=== PATIENT | male | born 1990 | race Caucasian/White ===

== ENCOUNTER 2020-04-10 19:21 | Emergency (ER) | payer SELFPAY ==
[2020-04-10 19:33] VITALS: BP 124/76; PULSE 89; RESP 16; TEMP 36.7; O2SAT 100
--- NOTE | 2020-04-10 20:14 | ED.GENADULT ---
HPI - General Adult General Chief complaint: Skin/Abscess/Foreign Body Stated complaint: Bite/Rash Time Seen by Provider: 04/10/20 20:14 Source: patient and RN notes reviewed Mode of arrival: ambulatory Limitations: no limitations History of Present Illness HPI narrative: 29-year-old male presents with complaints of red, raised, itching, burning, rash to upper extremities for the past 3 days. Outside in the yard playing baseball. No treatment. Denies new detergent, personal hygiene products, or laundry detergent. No new foods or medications. No swelling, bleeding, or drainage. Denies fever or chills, headaches, weakness, fatigue, malagia, facial swelling, or tongue swelling. Denies chest pain or dyspnea. The patient reports he have not been diagnosed with COVID-19. The patient reports he are not waiting for the results of a COVID-19 lab test. The patient reports he do not have fever, chills, weakness, or fatigue. The patient reports he do not have a new or worsening cough. The patient reports they do not have any rhinorrhea, congestion, sore throat, nausea, vomiting, abdominal pain, and diarrhea. Tolerating po intake well. Denies recent traveling. Denies concerns for COVID-19 or exposures been home with limited outdoor exposure except for essential household needs and return home. At this time, patient is not suspected of having COVID-19. Complains of insect bite to RT lower leg for the past 3 hours. No treatment. Gino believes an insect bit him on the right lower leg. Mild redness. Denies pain, burning, bleeding, and drainage. No fever or chills, or headaches. Denies numbness, tingling, or immobility. Some parts of this dictation were generated by voice recognition software and may contain typographical and/or grammatical inaccuracies. Related Data Allergies Allergy/AdvReac Type Severity Reaction Status Date / Time No Known Allergies Allergy Unknown Verified 04/10/20 19:39 Review of Systems Review of Systems: Narrative: CONSTITUTIONAL: Denies fever, chills, sweats. EYES: Denies visual changes, redness, discharge. ENT: Denies rhinorrhea, congestion, sore throat, otalgia. CARDIOVASCULAR: Denies chest pain, palpitations, edema. RESPIRATORY: Denies dyspnea, wheezing, cough. GASTROINTESTINAL: Denies abdominal pain, nausea, vomiting, diarrhea. GENITOURINARY: Denies dysuria, hematuria, abnormal discharge. SKIN: Complains of red, burning, and itching rash to upper extremites and insect bit to RT lower leg. Denies drainage. MUSCULOSKELETAL: Denies acute back pain, joint pain, or myalgia. NEUROLOGIC: Denies numbness or focal weakness. PSYCHIATRIC: Denies anxiety or depression. All other systems reviewed are negative, except as documented in HPI. [facility] Past Medical History Medical History (Updated 04/14/20 @ 21:24 by JESSICA Ortiz) History of TIA (transient ischemic attack) due to stress X3 Surgical History Surgical History (Updated 04/14/20 @ 21:22 by JESSICA Ortiz) No significant past surgical history Family History Family History (Updated 04/14/20 @ 21:26 by JESSIAC Ortiz) Father Unknown family medical history Mother Seizures Social History Social History (Updated 04/14/20 @ 21:30 by JESSICA Ortiz) Smoking packs per day: 0.45 Smoking cigarettes per day: 9.0 Years smoked: 2.5 Smoking pack-years: 1.13 Smoking status: Current every day smoker Tobacco type: cigarettes Second hand tobacco smoke exposure: No Alcohol intake: former Substance use: never Occupation/Education: unemployed Gender identity (if verbalized by the patient): Male Sexual Orientation (if Verbalized by the Patient): Straight or Heterosexual Comments At time of signature, agree with nurse past medical, surgical, social, and family history. There is no relevant family history pertinent to the presenting complaint. Exam Narrative: Exam Narrative: GENERAL:
== END 2020-04-10 20:28 | disposition home or self-care (01) ==
PROVIDERS: Emergency Provider Nurse Practitioner Family
DX: L23.7 Allergic contact dermatitis due to plants, except food (principal)
CPT/HCPCS: 99213; G0463

== ENCOUNTER 2020-05-20 18:44 | Emergency (ER) | payer SELFPAY ==
[2020-05-20 18:50] VITALS: BP 127/80; PULSE 91; RESP 18; TEMP 36.9; O2SAT 98
--- NOTE | 2020-05-20 18:58 | ED.SKABFB ---
HPI - Skin/Abscess/Foreign Bdy General Chief complaint: Skin/Abscess/Foreign Body Stated complaint: poison Yuliana Time Seen by Provider: 05/20/20 18:58 Source: patient and RN notes reviewed History of Present Illness HPI narrative: Patient is a 29-year-old male who presents the urgent care with complaints of scattered itchy poison yuliana. Patient states he is highly susceptible to poison yuliana. Patient states is been occurring for approximately 1 week and he has been using hydrocortisone cream to the affected areas. Patient states that seems to be worsening. 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 No other acute complaints. No acute distress noted. Patient aware of the plan of care. Some parts of this dictation were generated by voice recognition software and may contain typographical and/or grammatical inaccuracies. Related Data Allergies Allergy/AdvReac Type Severity Reaction Status Date / Time No Known Allergies Allergy Unknown Verified 05/20/20 18:50 Review of Systems Review of Systems: Narrative: CONSTITUTIONAL: Denies fever, chills, or sweats. EYES: Denies visual changes, redness, or discharge. ENT: Denies rhinorrhea, congestion, sore throat, or otalgia. CARDIOVASCULAR: Denies chest pain, palpitations, or edema. RESPIRATORY: Denies cough or dyspnea. GASTROINTESTINAL: Denies abdominal pain, nausea, vomiting, or diarrhea. GENITOURINARY: Denies dysuria or hematuria. SKIN: Reports of itchy spreading poison yuliana to the face, arms and legs MUSCULOSKELETAL: Denies back pain, joint pain, or myalgia. NEUROLOGIC: Denies headache, numbness, or weakness. All other systems reviewed are negative, except as documented in HPI. [facility] Past Medical History Medical History (Updated 05/20/20 @ 19:07 by JESSICA Rudolph) History of TIA (transient ischemic attack) due to stress X3 Surgical History Surgical History (Updated 04/14/20 @ 21:22 by JESSICA Ortiz) No significant past surgical history Family History Family History (Updated 04/14/20 @ 21:26 by JESSICA Ortiz) Father Unknown family medical history Mother Seizures Social History Social History (Updated 04/14/20 @ 21:30 by JESSICA Ortiz) Smoking packs per day: 0.45 Smoking cigarettes per day: 9.0 Years smoked: 2.5 Smoking pack-years: 1.13 Smoking status: Current every day smoker Tobacco type: cigarettes Second hand tobacco smoke exposure: No Alcohol intake: former Substance use: never Gender identity (if verbalized by the patient): Male Comments At the time of my signature, I reviewed and agree with the nursing past medical, surgical, social, and family history. There is no relevant family history pertinent to the patient complaint. Exam Narrative: Exam Narrative: GENERAL: This is a well-nourished, well-developed patient, in no apparent distress. HEAD: normocephalic, atraumatic. EYES: PERRL. Sclera clear/white. Vision is grossly intact. EARS: External ears normal NOSE: External nose normal with no obvious nasal discharge, nares without redness, no rhinorrhea. THROAT: Mucous membranes moist NECK: Neck supple SKIN: Pustular mildly erythemic ruse dermatitis noted to bilateral upper and lower legs, bilateral arms and around the forehead/hairline NEURO: awake, alert, and oriented to person, place and time. There were no obvious focal neurologic abnormalities. EXTREMITIES: No clubbing, cyanosis, or edema. Course Vital Signs Vital signs: Vital Signs Temperature 98.4 F 05/20/20 18:50 Pulse Rate 91 05/20/20 18:50 Respiratory Rate 18 05/20/20 18:50 Blood Pressure 127/80 05/20/20 18:50 Pulse Oximetry 98 05/20/20 18:50 Temperature 98.4 F 05/20/20 18:50 Pulse Rate 91 05/20/20 18:50 Respiratory Rate 18 05/20/20 18:50 Blood Pressure 127/80 05/20/20 18:50 Pulse Oximetry 98 05/20/20 18:50 Reviewed MDM - Skin/Abscess/Foreign Bdy MDM Narrative M
== END 2020-05-20 19:10 | disposition home or self-care (01) ==
PROVIDERS: Emergency Provider Nurse Practitioner Family
DX: L23.7 Allergic contact dermatitis due to plants, except food (principal); F17.210 Nicotine dependence, cigarettes, uncomplicated; Z86.73 Personal history of transient ischemic attack (TIA), and cerebral infarction without residual deficits
CPT/HCPCS: 99213; G0463

== ENCOUNTER 2021-06-22 19:10 | Emergency (ER) | payer OTHER, SELFPAY ==
--- NOTE | ~2021-06-22 | XR_ITS ---
EXAMINATION: XR knee LT min 4V DATE: 06/22/2021 19:47 INDICATION: Left knee pain TECHNIQUE: Five views of the left knee were obtained. COMPARISON: None. FINDINGS: Alignment is normal. No fracture or osteochondral lesion. Joint spaces are normal with no e rosions. No joint effusion/synovitis. There is infrapatellar and medial soft tissue swelling of the knee. IMPRESSION: 1. Soft tissue swelling without acute osseous abnormality. Reviewed, dictated and finalized at location A.
[2021-06-22 19:16] VITALS: BP 126/70; PULSE 88; RESP 14; TEMP 36.7; O2SAT 100
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
== END 2021-06-22 20:15 | disposition home or self-care (01) ==
PROVIDERS: Emergency Provider Nurse Practitioner
DX: S87.02XA Crushing injury of left knee, initial encounter (principal); W20.8XXA Other cause of strike by thrown, projected or falling object, initial encounter; Z86.73 Personal history of transient ischemic attack (TIA), and cerebral infarction without residual deficits; F17.210 Nicotine dependence, cigarettes, uncomplicated
CPT/HCPCS: 73564; 99213; G0463

== ENCOUNTER 2021-08-25 16:38 | Emergency (ER) | payer SELFPAY ==
[2021-08-25 16:42] VITALS: BP 146/75; PULSE 90; RESP 20; TEMP 36.7; O2SAT 100
--- NOTE | 2021-08-25 16:57 | ED.DENTAL ---
HPI - Dental/Oral General Chief complaint: Dental/Oral Stated complaint: tooth pain Time Seen by Provider: 08/25/21 16:57 Source: patient, RN notes reviewed and old records reviewed Mode of arrival: ambulatory Limitations: no limitations History of Present Illness HPI Narrative: 30-year-old male presents to the [facility] with complaints of dental pain for the last month. Worse over the last week. Patient states that on the right side he had all the teeth removed due to infection and decay. All molars on the left upper and lower are decayed to the gumline. Patient states that he gets little bubbles full of pus pop some with a needle and states they feel better. Swelling noted to surrounding tissue. States he has been taking ibuprofen, requesting an antibiotic. States he is also been using salt gargles which helps a little bit. MD Complaint: tooth pain Related Data Allergies Allergy/AdvReac Type Severity Reaction Status Date / Time No Known Allergies Allergy Unknown Verified 08/25/21 16:53 Review of Systems Review of Systems: All systems reviewed & are unremarkable except as noted in HPI and below Constitutional: Constitutional: Reports no additional constitutional complaints, Denies chills and Denies fever(s) Eyes: Eyes: Reports no additional eye complaints ENT: Reports as per HPI Comments: Left-sided dental pain Cardiovascular: Cardiovascular: Reports no additional cardiovascular complaints and Denies chest pain Respiratory: Respiratory: Reports no additional respiratory complaints, Denies cough and Denies dyspnea Gastrointestinal: Gastrointestinal: Reports no additional gastrointestinal complaints, Denies abdominal pain, Denies nausea and Denies vomiting Musculoskeletal: Musculoskeletal: Reports no additional musculoskeletal complaints Integumentary/Breasts: Skin/Breast: Reports system reviewed and no additional complaints, except as docu Neurologic: Reports system reviewed and no additional complaints, except as documented Psychiatric: Psychiatric: Reports no additional psychiatric complaints Allergic/Immunologic: Allergic/Immunologic: Reports no additional allergic/immunologic complaints [facility] Past Medical History Medical History (Updated 08/25/21 @ 16:58 by Kelli Jurado) History of TIA (transient ischemic attack) due to stress X3 Surgical History Surgical History No significant past surgical history Family History Family History Father Unknown family medical history Mother Seizures Social History Social History Smoking packs per day: 0.45 Smoking cigarettes per day: 9.0 Years smoked: 2.5 Smoking pack-years: 1.13 Smoking status: Current every day smoker Tobacco type: cigarettes Second hand tobacco smoke exposure: No Alcohol intake: former Substance use: never Gender identity (if verbalized by the patient): Male Sexual Orientation (if Verbalized by the Patient): Straight or Heterosexual Comments At the time of my signature, I reviewed and agree with the nursing past medical, surgical, social, and family history. There is no relevant family history pertinent to the patient complaint. Exam Const: General: healthy appearing, no acute distress and alert Nutritional Appearance: well nourished Orientation/consciousness: patient oriented x3 Limitations: no limitations HENMT: Head: normal to inspection Ears: hearing grossly normal bilaterally, external ears normal, TM's normal bilaterally and EAC's normal General nose exam: Normal external nose present Face and sinus: normal facial exam Mouth: Yes moist mucous membranes Teeth and gingiva: abnormal tooth and associated gingiva, caries, gingiva abnormal edematous and diffusely erythematous and poor dentition Throat: posterior oropharynx normal Eyes: Conjunctivae: conjunctivae normal
== END 2021-08-25 17:06 | disposition home or self-care (01) ==
PROVIDERS: Emergency Provider Nurse Practitioner
DX: K02.9 Dental caries, unspecified (principal); K04.7 Periapical abscess without sinus; F17.210 Nicotine dependence, cigarettes, uncomplicated; Z86.73 Personal history of transient ischemic attack (TIA), and cerebral infarction without residual deficits
CPT/HCPCS: 99213; G0463

== ENCOUNTER 2021-11-14 18:29 | Emergency (ER) | payer BC, SELFPAY ==
--- NOTE | 2021-11-14 18:32 | WPDEDEXPGENP ---
HPI - General Ped General Chief complaint: Dental/Oral Stated complaint: Toothache Time Seen by Provider: 11/14/21 18:32 Source: patient Mode of arrival: ambulatory Limitations: no limitations Nursing Documentation: reviewed/agree History of Present Illness HPI narrative: 30-year-old male patient presents to the [facility] with complaint of left upper tooth pain. Patient states he saw his dentist a couple days ago and was prescribed amoxicillin but only for 3 days. Patient states that he is found an oral surgeon that will take him to remove the teeth but he was waiting on a referral from his dentist. Patient states his dentist would not refer him until the infection has gone. Patient states he has been taking ibuprofen for the pain. Related Data Allergies Allergy/AdvReac Type Severity Reaction Status Date / Time No Known Allergies Allergy Unknown Verified 11/14/21 18:31 Pediatric Review of Systems Review of Systems: CONSTITUTIONAL: Denies fever, chills, or sweats. EYES: Denies visual changes, redness, or discharge. ENT: Denies rhinorrhea, congestion, sore throat, or otalgia. Positive left upper tooth pain CARDIOVASCULAR: Denies chest pain, palpitations, or edema. RESPIRATORY: Denies cough or dyspnea. GASTROINTESTINAL: Denies abdominal pain, nausea, vomiting, or diarrhea. GENITOURINARY: Denies dysuria or hematuria. SKIN: Denies rash or itching. MUSCULOSKELETAL: Denies back pain, joint pain, or myalgia. NEUROLOGIC: Denies headache, numbness, or weakness. PSYCHIATRIC: Denies anxiety or depression. [facility] Past Medical History Medical History History of TIA (transient ischemic attack) due to stress X3 Surgical History Surgical History No significant past surgical history Family History Family History Father Unknown family medical history Mother Seizures Social History Social History Smoking packs per day: 0.45 Smoking cigarettes per day: 9.0 Years smoked: 2.5 Smoking pack-years: 1.13 Smoking status: Current every day smoker Tobacco type: cigarettes Second hand tobacco smoke exposure: No Alcohol intake: former Substance use: never Gender identity (if verbalized by the patient): Male Sexual Orientation (if Verbalized by the Patient): Straight or Heterosexual Comments At the time of my signature I agree with nursing past medical history, surgical, social, and family history. There is no relevant family history pertinent to the presenting complaint. Pediatric Exam Narrative: Physical exam: GENERAL: Well-appearing, well-nourished, and in no acute distress. HEAD: Normocephalic, atraumatic. EYES: PERRLA and EOMI. ENT: Nares clear, no rhinorrhea or epistaxis. Mucous membranes moist. Patient has multiple dental caries rotten teeth throughout the entire oral cavity. Patient does have surrounding erythema and swelling noted to the upper back molars. There is no open wound or discharge noted at this time. NECK: Supple. No lymphadenopathy CHEST: Clear to auscultation. No respiratory distress. HEART: Regular rate and rhythm. No murmur heard. Normal peripheral pulses. ABDOMEN: Soft, nontender, nondistended, normal active bowel sounds. EXTREMITIES: Normal range of motion. No edema. SKIN: Warm, dry, no rash. NEURO: No focal deficits. Alert and oriented x3. Course Course Level of Care: Express Care Visit Vital Signs Vital signs: Vital Signs Temperature 36.9 C 11/14/21 18:34 Pulse Rate 93 11/14/21 18:34 Respiratory Rate 14 11/14/21 18:34 Blood Pressure 133/69 11/14/21 18:34 Pulse Oximetry 100 11/14/21 18:34 Temperature 36.9 C 11/14/21 18:34 Pulse Rate 93 11/14/21 18:34 Respiratory Rate 14 11/14/21 18:34 Blood Pressure 133/69 11/14/21 18:34 Pulse Ox
[2021-11-14 18:34] VITALS: BP 133/69; PULSE 93; RESP 14; TEMP 36.9; O2SAT 100
== END 2021-11-14 18:49 | disposition home or self-care (01) ==
PROVIDERS: Emergency Provider Nurse Practitioner Family
DX: K02.9 Dental caries, unspecified (principal); K04.7 Periapical abscess without sinus; K05.10 Chronic gingivitis, plaque induced; F17.210 Nicotine dependence, cigarettes, uncomplicated; Z86.73 Personal history of transient ischemic attack (TIA), and cerebral infarction without residual deficits
CPT/HCPCS: 99213; G0463

== ENCOUNTER 2022-05-19 19:27 | Emergency (ER) | payer BC, SELFPAY ==
--- NOTE | ~2022-05-19 | XR_ITS ---
EXAM: XR knee LT min 4V DATE: 05/19/2022 19:45 HISTORY: NKI,SWELLING AND PAIN UNDER KNEECAP . COMPARISON: 06/22/2021. FINDINGS: Normal mineralization. No fracture or dislocation. No lytic or blastic lesion. Joint space s are maintained. No erosion or periosteal change. Marked infrapatellar soft tissue swelling. IMPRESSION: No acute osseous finding in the left knee. Marked anterior infrapatellar soft tissue swel ling. Reviewed, dictated and finalized at location K. IMPRESSION: No acute osseous finding in the left knee. Marked anterior infrapat ellar soft tissue swelling.
[2022-05-19 19:30] VITALS: BP 136/72; PULSE 83; RESP 16; TEMP 37.2; O2SAT 100
--- NOTE | 2022-05-19 19:50 | ED.EXTPRO ---
HPI - Extremity Problem General Chief complaint: Extremity Problem,Nontraumatic Stated complaint: Left Knee Injury Time Seen by Provider: 05/19/22 19:46 Source: patient and RN notes reviewed Mode of arrival: ambulatory Limitations: dementia History of Present Illness HPI Narrative: 31-year-old male presents with concern for redness, pain, swelling to the left knee. He reports symptoms started yesterday with a small red bump to the front of the knee. He reports the swelling became larger over the last 24 hours. He reports mild general malaise. He denies fever, bodies, chills, sweats. He denies any rash,, laceration, abrasion. He denies any drainage. He denies any history of knee injury. MD Complaint: extremity pain and extremity swelling Related Data Allergies Allergy/AdvReac Type Severity Reaction Status Date / Time No Known Allergies Allergy Unknown Verified 05/19/22 19:46 Review of Systems Review of Systems: CONSTITUTIONAL: Reports mild malaise. Denies chills, sweats, or fever. EYES: Denies redness, or discharge. ENT: Denies rhinorrhea, congestion, swollen lips, swollen tongue CARDIOVASCULAR: Denies chest pain, palpitations, or edema. RESPIRATORY: Denies cough or dyspnea. GASTROINTESTINAL: Denies abdominal pain, nausea, vomiting SKIN: Reports redness, swelling to the anterior left knee left Denies purulent drainage, vesicles, bullae, numbness, pain beyond proportion MUSCULOSKELETAL: Denies joint pain or myalgia. NEUROLOGIC: Denies headache. All systems reviewed & are unremarkable except as noted in HPI and below PMFSH Past Medical History Medical History History of TIA (transient ischemic attack) due to stress X3 Surgical History Surgical History No significant past surgical history Family History Family History Father Unknown family medical history Mother Seizures Social History Social History Smoking packs per day: 0.45 Smoking cigarettes per day: 9.0 Years smoked: 2.5 Smoking pack-years: 1.13 Smoking status: Current every day smoker Tobacco type: cigarettes Second hand tobacco smoke exposure: No Alcohol intake: former Substance use: never Gender identity (if verbalized by the patient): Male Sexual Orientation (if Verbalized by the Patient): Straight or Heterosexual Comments At time of signature, agree with nursing past medical, surgical, social and family history. There is no relevant family history pertinent to the presenting complaint Exam Narrative: GENERAL: Well-appearing, well-nourished, and in no acute distress. HEAD: Normocephalic, atraumatic. EYES: PERRLA, conjunctivae clear ENT: Mucous membranes moist. NECK: Supple. No lymphadenopathy CHEST: Clear to auscultation. No respiratory distress. HEART: Regular rate and rhythm. SKIN: Warm, dry. Superficial erythema, induration, tenderness, warmth with sharp margins noted above the left patella. No vesicles, bullae, necrosis, ecchymosis, crepitus noted. NEURO: Alert and oriented x3. PSYCH: Normal mood and affect Course Course Emergency Course: The joint itself is not red, warm, painful, swelling, warmth, redness isolated above the patella consistent with cellulitis. Patient was advised that if symptoms do not improve or they worsen he needs to go the ER. Patient reports he has been to the ER but the wait was too long. Patient is aware of diagnosis, understands and agrees to treatment plan. Anticipatory guidance given. Patient agrees to follow-up as directed and is aware of reasons to seek care at the emergency department. Portions of this record may have been created with voice recognition software Level of Care: Express Care Visit Vital Signs Vital signs: Vital Signs Temperature 99 F 05/19/
== END 2022-05-19 20:10 | disposition home or self-care (01) ==
PROVIDERS: Emergency Provider Nurse Practitioner
DX: M70.52 Other bursitis of knee, left knee (principal); F17.210 Nicotine dependence, cigarettes, uncomplicated; Z86.73 Personal history of transient ischemic attack (TIA), and cerebral infarction without residual deficits
CPT/HCPCS: 73564; 99213; G0463

== ENCOUNTER 2025-03-10 10:34 | Emergency (ER) | payer BC, SELFPAY ==
--- OUTSIDE RECORDS SUMMARY | 2025-03-10 10:36 | XMS_ITS | Data Portability ---
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 two Monster drinks/day and a great deal of Mountain Dew. Jorge Odom MD Attn: [address] [place], [address], [facility] 07/21/2022 13:45:41 03/10/2023 text/html Per intake note. Insomnia has improved since reducing highly-caffeinated beverages. Jorge Odom MD Attn: [address] [place], [address], [facility] 03/14/2023 07:59:48 10/11/2023 text/html Per intake note. Jorge patterson MD Attn: [address] [place], [address], [facility] 10/15/2023 08:03:11
[2025-03-10 10:47] VITALS: BP 139/85; PULSE 69; RESP 18; TEMP 36.2; O2SAT 100
--- NOTE | 2025-03-10 10:48 | ED.SKABFB ---
HPI - Skin/Abscess/Foreign Bdy General Chief complaint: Skin/Abscess/Foreign Body Stated complaint: Rash Patient presents to the [facility] with complaints of poison yuliana rash to both arms, abdomen, and face that began 2-3 days ago. Patient has been using an [id number] poison yuliana medication that did help with itching and oozing. Patient reports he usually gets poison yuliana rash several times per year. Denies face swelling, tongue swelling, lip swelling, shortness of breath, or colored drainage from the rash area. Related Data Home Medications ?Medication ?Instructions ?Recorded ?Confirmed ?Last Taken ?Type No Home Medications 03/10/25 03/10/25 Unknown History Allergies Allergy/AdvReac Type Severity Reaction Status Date / Time No Known Allergies Allergy Unknown Verified 03/10/25 10:47 Review of Systems Constitutional: Constitutional: Reports as per HPI, Denies chills, Denies fatigue, Denies fever(s) and Denies weakness Eyes: Eyes: Reports no additional eye complaints ENT: Reports as per HPI Cardiovascular: Cardiovascular: Reports no additional cardiovascular complaints Respiratory: Respiratory: Reports no additional respiratory complaints Gastrointestinal: Gastrointestinal: Reports no additional gastrointestinal complaints Genitourinary: Genitourinary: Reports no additional male genitourinary complaints Musculoskeletal: Musculoskeletal: Reports no additional musculoskeletal complaints Integumentary/Breasts: Skin/Breast: Reports as per HPI, Reports pruritus, Denies erythema, Reports rash and Denies skin ulcer Neurologic: Reports system reviewed and no additional complaints, except as documented Psychiatric: Psychiatric: Reports no additional psychiatric complaints Endocrine: Endocrine: Reports no additional endocrine complaints Hematologic/Lymphatic: Hematologic/Lymphatic: Reports no additional hematologic/lymphatic complaints Allergic/Immunologic: Allergic/Immunologic: Reports as per HPI, Denies lip swelling, Denies throat swelling, Denies tongue swelling and Denies wheezing Comments: Itching and rash PMFSH Past Medical History Medical History History of TIA (transient ischemic attack) due to stress X3 Surgical History Surgical History No significant past surgical history Family History Family History Father Unknown family medical history Mother Seizures Social History Social History Smoking packs per day: 0.45 Smoking cigarettes per day: 9.0 Years smoked: 2.5 Smoking pack-years: 1.13 Smoking status: Current every day smoker Tobacco type: cigarettes Second hand tobacco smoke exposure: No Alcohol intake: former Substance use: never Occupation/Education: unemployed Gender identity (if verbalized by the patient): Male Sexual Orientation (if Verbalized by the Patient): Straight or Heterosexual Exam Const: General: healthy appearing and no acute distress Nutritional Appearance: well nourished Orientation/consciousness: patient oriented x3 Limitations: no limitations HENMT: Face and sinus: normal facial exam and sinuses nontender Mouth: Yes Normal oral and palatal mucosa present and Yes lip normal Throat: posterior oropharynx normal Eyes: Conjunctivae: conjunctivae normal EOM: EOMs intact bilaterally Resp: Effort & Inspection: normal respiratory effort Auscultation: clear to auscultation bilaterally Cardio: Rate: regular rate Rhythm: regular rhythm Skin: General skin exam: normal color Rashes: rash noted Wounds: no wounds Other: minimal vesicular rash noted to right arm, left arm, lower abdomen, neck, and minimal to left cheek Neuro: General: patient oriented x3 and moves all extremities Speech: normal speech Gait exam (Neuro): Normal gait present Extrem: General: normal to inspection, no clubbing, cyanosis or edema and no edema Psych: Mental Status: mental status grossly normal Affect: normal affect Attitude: cooperative Course Course Level of Care: Express Care Visit MDM - Skin/Abscess/Foreign Bdy MDM Narrative Medical decision making narrative: no significant need for injection of steroids here at the urgent care. Will place patient on oral steroids and topical steroids. Discharge instructions reviewed with patient, as well as provided in writing per nursing staff. The instructions also include specific and strict return/GO TO THE ER as well as f/u information. All questions have been answered, and the patient deny any further questions with discharge and discharge plan. Differential Diagnosis Differential diagnosis: Likely cellulitis, insect bites, impetigo and contact dermatitis Medical Records Attestation: I reviewed the patient's medical records. Discharge Plan Discharge Clinical Impression: Allergic dermatitis due to poison yuliana Patient Disposition: Home Condition: Stable Instructions: Antibiotic Form, Poison Yuliana (ED), Cold Compress or Soak (ED) Additional Instructions: Prevention is always better than treatment. Learn to identify poison yuliana, oak, and sumac and avoid it. Wear long sleeves, long pants, shoes, and socks. If you touched the plant, try to keep your hands away from your eyes, mouth, and face. Wash the skin thoroughly with soap and cool water as soon as possible. Scrub under the fingernails with a brush to prevent spreading of the resin to other parts of the body by touching or scratching. Remember to wash any clothing with soap and hot water as the resin can persist for many months and cause further dermatitis. Use calamine lotion on the affect area. IF symptoms get worse to follow up with your primary care provider or seek ER visit if you developing difficulty breathing, weakness, dizziness. Patient Language: German Prescriptions: New prednisone 10 mg tablet 10 mg PO DIRECTED Qty: 18 0RF Rx Instructions: take 3 tablets for 3 days, 2 tablets for 3 days, 1 tablet for 3 days triamcinolone acetonide 0.1 % cream 1 applic topical TID PRN (Reason: rash) Qty: 80 0RF No Action No Home Medications Follow-up/Referrals: Lei,Jorge Hills MD [Primary Care Provider] - Time of Disposition: 10:55
== END 2025-03-10 11:07 | disposition home or self-care (01) ==
PROVIDERS: Emergency Provider Nurse Practitioner Family; PCP Family Medicine
DX: L23.7 Allergic contact dermatitis due to plants, except food (principal); F17.210 Nicotine dependence, cigarettes, uncomplicated; Z86.73 Personal history of transient ischemic attack (TIA), and cerebral infarction without residual deficits
CPT/HCPCS: 99213; G0463